=== PATIENT | female | born 1965 | race Caucasian/White ===

== ENCOUNTER 2023-11-12 07:32 | Day surgery (SDC) | payer BC ==
[~2023-11-12] VITALS: Ht 157.5 cm; Wt 99.8 kg
[2023-11-12] MEDS ORDERED: PROPOFOL 200MG/ 20ML VIAL (DIPRIVAN) IV ONE (10:19)
[2023-11-12] MEDS ORDERED: NS IRRIG SOLN 1000 ML IR ONE (10:19)
[2023-11-12] MEDS ORDERED: METOCLOPRAMIDE HCL 10 MG/2 ML VIAL ONE (10:19)
[2023-11-12] MEDS ORDERED: SEVOFLURANE 15 MIN GAS INH ONE (10:19)
[2023-11-12] MEDS ORDERED: PHENYLEPHRINE HCL 10 MG/ML VIAL (NEOSYNEPHRINE) ONE (10:19)
[2023-11-12] MEDS ORDERED: DEXAMETHASONE SOD PHOSPHATE 4 MG/ML VIAL ONE (10:19)
[2023-11-12] MEDS ORDERED: LR 1,000 ML IV.SOLN IV ONE (10:19)
[2023-11-12] MEDS ORDERED: KETOROLAC TROMETHAMINE 30 MG VIAL ONE (10:19)
[2023-11-12] MEDS ORDERED: HYDROmorphone 2 MG/ML VIAL ONE (10:19)
[2023-11-12] MEDS ORDERED: MIDAZOLAM HCL 5 MG/5 ML VIAL ONE (10:19)
[2023-11-12] MEDS ORDERED: SUGAMMADEX SODIUM 200 MG/2 ML VIAL IV ONE (10:19)
[2023-11-12] MEDS ORDERED: fentaNYL CITRATE/PF 100 MCG/2 ML AMP ONE (10:19)
[2023-11-12] MEDS ORDERED: ROCURONIUM BROMIDE 10 MG/ML (ZEMURON) ONE (10:19)
[2023-11-12] MEDS ORDERED: ONDANSETRON HCL 4 MG/2 ML VIAL ONE (10:19)
[2023-11-12] MEDS ORDERED: CEFAZOLIN 2 GM IVPB PREMIX 50 ML IV ONE (10:19)
[2023-11-12] MEDS ORDERED: BUPIVACAINE LIPOSOME/PF 266 MG/20 ML VIAL INFIL ONE (10:34)
[2023-11-12] MEDS ORDERED: MEPERIDINE HCL/PF 25 MG/ML DISP.SYRIN IVP PRN (11:45)
[2023-11-12] MEDS ORDERED: HYDROmorphone 1 MG/ML INJ. CARTRIDGE IVP PRN (11:45)
[2023-11-12] MEDS ORDERED: KETOROLAC TROMETHAMINE 30 MG VIAL IVP PRN (11:45)
[2023-11-12] MEDS ORDERED: ONDANSETRON HCL 4 MG/2 ML VIAL IVP PRN (11:45)
[2023-11-12] MEDS ORDERED: LR 1,000 ML IV SCH (11:45)
[2023-11-12] MEDS ORDERED: ALBUTEROL SULFATE 0.083% 2.5 MG/3 ML VIAL.NEB INH ONE (17:30)
[2023-11-12 17:40] VITALS: O2SAT 93
[2023-11-12 19:30] VITALS: BP_SYST 128; PULSE 72; RESP 18; TEMP 97.9
[2023-11-12 20:20] VITALS: BP_SYST 120; PULSE 98; RESP 18; TEMP 98; O2SAT 94
[2023-11-12] MEDS ORDERED: traMADol HCL HCL 50 MG TABLET (ULTRAM) PO PRN (22:00)
[2023-11-12] MEDS ORDERED: MORPHINE 2 MG/ML INJ. SYRINGE IVP PRN (22:00)
[2023-11-13 01:10] VITALS: BP_SYST 110; PULSE 93; RESP 15; TEMP 97.6; O2SAT 98
[2023-11-13 04:00] VITALS: BP_SYST 124; PULSE 78; RESP 18; TEMP 97.9; O2SAT 98
[2023-11-13 07:55] VITALS: BP_SYST 117; PULSE 98; RESP 16; TEMP 98.5; O2SAT 95
[2023-11-13 11:45] VITALS: BP_SYST 130; PULSE 98; RESP 16; TEMP 98.6; O2SAT 92
[2023-11-13 12:50] VITALS: BP_SYST 130; PULSE 98; RESP 16; TEMP 98.6; O2SAT 92
== END 2023-11-13 13:22 | disposition home or self-care (01) ==
LOC: SDS 07:32 → SMU 07:49 → SDS 11-13 13:22
PROVIDERS: ATTEND Surgery
DX: K43.2 Incisional hernia without obstruction or gangrene (principal); I10 Essential (primary) hypertension; E11.9 Type 2 diabetes mellitus without complications; E66.01 Morbid (severe) obesity due to excess calories; Z68.41 Body mass index [BMI] 40.0-44.9, adult; Z79.899 Other long term (current) drug therapy
CPT/HCPCS: 87081; 49593; 71045; 94640; 88302; J3490; C9290; J0690; J1100; J1885; J2765; J2250; J2405; J2704; J3010; J1170; J2270; J7120; C1781; J2370